=== PATIENT | female | born 1950 ===

== ENCOUNTER 2017-01-14 11:45 | Emergency (ER) | payer MEDICARE ==
[2017-01-14 11:53] VITALS: BMI 36.8
[2017-01-14 11:59] VITALS: TEMP 98.3
[2017-01-14] MEDS ORDERED: oxyCODONE 5 mg Immediate Release Tab PO STA (12:45)
[2017-01-14 14:02] VITALS: BP 136/87; PULSE 59; RESP 18; O2SAT 98
--- NOTE | 2017-01-14 14:47 | ED PDOC ---
Arrival/HPI - General Chief Complaint: Hip Pain Time Seen by Provider: 01/14/17 12:17 Historian: Patient - History of Present Illness Narrative History of Present Illness (Text): 01/14/17 12:40 A 66 year old female, with no significant past medical history, presents to the emergency department complaining of right lower back pain radiating to the right leg for several weeks. Patient reports he had an MRI done 3 days ago but does not know the results. Patient denies of any fever, chills, nausea, vomiting, diarrhea, abdominal pain, chest pain, shortness of breath, or any other complaints. Also, patient mentions he took Naprosyn but has had no relief and no dysfunction. PMD: Dr. Chavira Time/Duration: Other (several weeks) Symptom Onset: Sudden Symptom Course: Unchanged Past Medical History - Provider Review Nursing Documentation Reviewed: Yes - Infectious Disease Hx of Infectious Diseases: None - Reproductive Menopause: Yes - Musculoskeletal/Rheumatological Hx Back Pain: Yes - Psychiatric Hx Substance Use: No - Surgical History Hx Appendectomy: Yes Hx Hysterectomy: Yes Other/Comment: orthoscopic surgery both knee - Anesthesia Hx Anesthesia Reactions: No Hx Malignant Hyperthermia: No Family/Social History - Physician Review Nursing Documentation Reviewed: Yes Family/Social History: No Known Family HX Smoking Status: Never Smoked Hx Alcohol Use: No Hx Substance Use: No Allergies/Home Meds Allergies/Adverse Reactions: Allergies alendronate sodium [From Fosamax] Allergy (Verified 01/14/17 11:54) SWELLING erythromycin base [From Erythrocin] Allergy (Verified 01/14/17 11:53) RASH Home Medications: Home Meds Medication Instructions Recorded Confirmed Methylprednisolone [Medrol Dose 4 mg PO DAILY 01/14/17 01/14/17 Pack (21 tabs)] Naproxen [Naprosyn] 500 mg PO BID 01/14/17 01/14/17 Rosuvastatin Calcium [Crestor] 10 mg PO HS 01/14/17 01/14/17 Review of Systems - Physician Review All systems were reviewed & negative as marked: Yes - Review of Systems Constitutional: absent: Fevers, Night Sweats Respiratory: absent: SOB Cardiovascular: absent: Chest Pain Gastrointestinal: absent: Abdominal Pain, Diarrhea, Nausea, Vomiting Musculoskeletal: Back Pain (right lower back pain radiating to right leg), Other (right leg pain radiating from lower back pain) Physical Exam Vital Signs Reviewed: Yes Vital Signs Temp Pulse Resp BP Pulse Ox 01/14/17 14:01 59 L 18 136/87 98 01/14/17 11:46 98.3 F 69 19 111/74 97 Temperature: Afebrile Blood Pressure: Normal Pulse: Regular Respiratory Rate: Normal Appearance: Positive for: Well-Appearing Pain Distress: None Mental Status: Positive for: Alert and Oriented X 3 - Systems Exam Head: Present: Atraumatic, Normocephalic Pupils: Present: PERRL Extroacular Muscles: Present: EOMI Conjunctiva: Present: Normal Mouth: Present: Moist Mucous Membranes Neck: Present: Normal Range of Motion Respiratory/Chest: Present: Clear to Auscultation, Good Air Exchange. No: Respiratory Distress, Accessory Muscle Use Cardiovascular: Present: Regular Rate and Rhythm, Normal S1, S2. No: Murmurs Abdomen: Present: Normal Bowel Sounds. No: Tenderness, Distention, Peritoneal Signs Back: Present: Normal Inspection Upper Extremity: Present: Normal Inspection. No: Cyanosis, Edema Lower Extremity: Present: Other (positive straight right leg test) Neurological: Present: GCS=15, CN II-XII Intact, Speech Normal Skin: Present: Warm, Dry, Normal Color. No: Rashes Psychiatric: Present: Alert, Oriented x 3, Normal Insight, Normal Concentration Medical Decision Making ED Course and Treatment: 01/14/17 12:45 Impression: 66 year old female with right lower back pain radiating to right leg. Physical exam shows positive right straight leg test. Plan: -- Flexeril -- Oxycodone -- Reassess and disposition Progress Notes: 01/14/17 14:02 Patient was given results of MRI. Prescribed pain medication and will follow-up 2-3 weeks. - Medication Orders Current Medication Orders: Discontinued Medications Cyclobenzaprine HCl (Flexeril) 5 mg PO STAT STA Stop: 01/14/17 12:46 Last Admin: 01/14/17 13:27 Dose: 5 mg Oxycodone HCl (Oxycodone Immediate Release Tab) 5 mg PO STAT STA Stop: 01/14/17 12:46 Last Admin: 01/14/17 13:26 Dose: 5 mg - Scribe Statement The provider has reviewed the documentation as recorded by the Chelsey Mejia Provider Scribe Attestation: All medical record entries made by the Scribe were at my direction and personally dictated by me. I have reviewed the chart and agree that the record accurately reflects my personal performance of the history, physical exam, medical decision making, and the department course for this patient. I have also personally directed, reviewed, and agree with the discharge instructions and disposition. Disposition/Present on Arrival - Present on Arrival Any Indicators Present on Arrival: No History of DVT/PE: No History of Uncontrolled Diabetes: No Urinary Catheter: No History of Decub. Ulcer: No History Surgical Site Infection Following: None - Disposition Have Diagnosis and Disposition been Completed?: Yes Diagnosis: Back pain Disposition: HOME/ ROUTINE Disposition Time: 12:40 Condition: GOOD Discharge Instructions (ExitCare): Acute Low Back Pain (ED) Additional Instructions: Thank you for letting us take care of you today. Your provider was Dr. Reed. You were treated for back pain. The emergency medical care you received today was directed at your acute symptoms. If you were prescribed any medication, please fill it and take as directed. It may take several days for your symptoms to resolve. Return to the Emergency Department if your symptoms worsen, do not improve, or if you have any other problems. Please contact your doctor or call one of the physicians/clinics you have been referred to that are listed on the Patient Visit Information form that is included in your discharge packet. Bring any paperwork you were given at discharge with you along with any medications you are taking to your follow up visit. Our treatment cannot replace ongoing medical care by a primary care provider (PCP) outside of the emergency department. Thank you for allowing the [facility] team to be part of your care today. Follow up with Dr. Chavira for MRI follow up and pain management. Prescriptions: Cyclobenzaprine [Cyclobenzaprine HCl] 10 mg PO Q8 PRN #20 tab PRN Reason: Muscle Spasm oxyCODONE [oxyCODONE Immediate Release Tab] 5 mg PO Q6 PRN #15 tab PRN Reason: Pain, Severe (8-10) Referrals: Calin Chavira MD [Primary Care Provider] - Follow up with primary Forms: [employer] ([place])
== END 2017-01-14 14:02 | disposition home or self-care (01) ==
LOC: ED 11:45
DX: M54.5 Low back pain (principal)

== ENCOUNTER 2018-09-27 08:08 | Outpatient (CLI) | payer MEDICARE | END 2018-09-27 08:09 | disposition home or self-care (01) | LOC: RAD 08:08 ==